=== PATIENT | male | born 1995 | race Caucasian/White ===

== ENCOUNTER 2018-06-22 11:21 | Emergency (ER) | payer OTHER ==
[~2018-06-22] VITALS: Ht 193 cm; Wt 81.7 kg
[~2018-06-22 11:21] MED LIST: (None)20 M1 PO; ALBU4 PO; ARIP10; ARIP10 PO; CEPH500 PO; HYDACE5 PO; HYDR1TAB94 PO; IBUP600 PO; NAPR500 PO; Percocet 5-3251 EACH PO; SERT25; SERT25 PO; SERT50; SULTRIDS PO; TRAZ50 PO; Vistaril25 MG PO
[2018-06-22] MEDS ORDERED: QUET200 PO ×3 (11:31→11:34)
[2018-06-22] MEDS ORDERED: OLAN10 PO (11:33)
== END 2018-06-22 11:37 | disposition home or self-care (01) ==
LOC: ER 11:21
DX: Z76.0 Encounter for issue of repeat prescription (principal); Z79.899 Other long term (current) drug therapy; F31.9 Bipolar disorder, unspecified; F17.200 Nicotine dependence, unspecified, uncomplicated
CPT/HCPCS: 99281

== ENCOUNTER 2018-12-01 21:11 | Emergency (ER) | payer OTHER ==
[~2018-12-01] VITALS: Ht 185.4 cm; Wt 86.2 kg
[~2018-12-01 21:11] MED LIST changes: +OLAN10 PO; +QUET200 PO
[2018-12-01] MEDS ORDERED: IBUP600 PO (23:23)
== END 2018-12-01 23:38 | disposition home or self-care (01) ==
LOC: ER 21:11
DX: S09.90XA Unspecified injury of head, initial encounter (principal); W22.8XXA Striking against or struck by other objects, initial encounter; Z79.899 Other long term (current) drug therapy; F31.9 Bipolar disorder, unspecified; F17.210 Nicotine dependence, cigarettes, uncomplicated
CPT/HCPCS: 70450; 99283-25

== ENCOUNTER 2018-12-10 14:45 | Emergency (ER) | payer OTHER ==
[~2018-12-10] VITALS: Ht 193 cm; Wt 86.2 kg
== END 2018-12-10 15:37 | disposition home or self-care (01) ==
LOC: ER 14:45
DX: S62.366A Nondisplaced fracture of neck of fifth metacarpal bone, right hand, initial encounter for closed fracture (principal); F31.9 Bipolar disorder, unspecified; F17.210 Nicotine dependence, cigarettes, uncomplicated; W22.8XXA Striking against or struck by other objects, initial encounter
CPT/HCPCS: 29125; 73130; 99283-25

== ENCOUNTER 2019-01-04 17:22 | Emergency (ER) | payer OTHER ==
[~2019-01-04] VITALS: Ht 193 cm; Wt 86.2 kg
[2019-01-04] MEDS ORDERED: Naprosyn500 MG PO (18:45)
== END 2019-01-04 18:52 | disposition home or self-care (01) ==
LOC: ER 17:22
DX: M25.562 Pain in left knee (principal); M25.462 Effusion, left knee; F31.9 Bipolar disorder, unspecified; F17.210 Nicotine dependence, cigarettes, uncomplicated
CPT/HCPCS: 73562-LT; 99283-25

== ENCOUNTER 2019-02-23 22:04 | Emergency (ER) | payer OTHER ==
[~2019-02-23] VITALS: Ht 193 cm; Wt 86.2 kg
[~2019-02-23 22:04] MED LIST changes: +Naprosyn500 MG PO
[2019-02-23] MEDS ORDERED: CEPH500 PO (23:44)
[2019-02-23] MEDS ORDERED: Bactrim Ds Tab1 EACH PO (23:44)
== END 2019-02-23 23:55 | disposition home or self-care (01) ==
LOC: ER 22:04
DX: L03.116 Cellulitis of left lower limb (principal); F17.210 Nicotine dependence, cigarettes, uncomplicated
CPT/HCPCS: 99282

== ENCOUNTER 2019-04-14 08:24 | Emergency (ER) | payer OTHER ==
[~2019-04-14] VITALS: Ht 193 cm; Wt 90.7 kg
[~2019-04-14 08:24] MED LIST changes: +Bactrim Ds Tab1 EACH PO
== END 2019-04-14 09:46 | disposition home or self-care (01) ==
LOC: ER 08:24
DX: S62.613A Displaced fracture of proximal phalanx of left middle finger, initial encounter for closed fracture (principal); F31.9 Bipolar disorder, unspecified; F17.210 Nicotine dependence, cigarettes, uncomplicated; X58.XXXA Exposure to other specified factors, initial encounter
CPT/HCPCS: 73130; 99283-25

== ENCOUNTER 2020-09-02 01:36 | Inpatient (IN) | payer OTHER ==
[~2020-09-02] VITALS: Ht 193 cm; Wt 103.5 kg
[~2020-09-02 01:36] MED LIST changes: +Mirtazapine7.5 MG PO; +RISPERIDONE PO
[2020-09-02 03:53] LABS: BASOPHILS ABSOLUTE AUTO 0.09 K/mm3 (0.00-0.23); BASOPHILS PERCENT AUTO 1 % (0-2); EOSINOPHILS ABSOLUTE AUTO 0.14 K/mm3 (0.00-0.68); EOSINOPHILS PERCENT AUTO 1 % (0-6); Hematocrit 45.4 % (37.0-53.0); IMMATURE GRAN ABSOLUTE AUTO 0.15 K/mm3 (0.00-0.10); IMMATURE GRAN PERCENT AUTO 1 % (0-1); LYMPHOCYTES ABSOLUTE AUTO 1.27 K/mm3 (0.84-5.20); LYMPHOCYTES PERCENT AUTO 6 % (21-46); MONOCYTES ABSOLUTE AUTO 1.72 K/mm3 (0.16-1.47); MONOCYTES PERCENT AUTO 9 % (4-13); Mean Corpuscular HGB 30.4 pg (26.0-34.0); Mean Corpuscular Volume 92 fL (80-100); Mean Platelet Volume 10.2 fL (9.1-12.4); NEUTROPHILS ABSOLUTE AUTO 16.57 K/mm3 (1.96-9.15); NEUTROPHILS PERCENT AUTO 83 % (41-73); Platelet Count 252 K/mm3 (150-400); RDW Standard Deviation 43.7 fL (35.1-46.3); Red Blood Cell Count 4.94 M/mm3 (4.30-5.90); White Blood Cell Count 19.94 K/mm3 (4.00-11.30)
[2020-09-02 04:11] LABS: Alanine Aminotransfer (ALT/SGP 34 U/L (12-78); Albumin, Blood 4.1 g/dL (3.4-5.0); Albumin/Globulin Ratio 0.9 (0.8-1.8); Alk Phos 79 U/L (50-136); Anion Gap 13 mmol/L (6-16); Aspartate Aminotrans (AST/SGOT 41 U/L (12-37); Blood Urea Nitrogen 21 mg/dL (8-24); CO2, Blood 22 mmol/L (21-32); Calcium, Blood 9.9 mg/dL (8.5-10.1); Chloride, Blood 102 mmol/L (98-108); Creatinine, Blood 0.88 mg/dL (0.60-1.20); Globulin, Blood 4.7 g/dL (2.2-4.0); Glomerular Filtration Rate >60 (60-); Glucose, Blood 73 mg/dL (70-99); Potassium, Blood 3.5 mmol/L (3.5-5.5); Sodium, Blood 137 mmol/L (136-145); Total Protein, Blood 8.8 g/dL (6.4-8.2)
--- NOTE | 2020-09-02 07:33 | NUR ---
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 arrived to unit via at 0545. medicated for left arm pain. l index finger swollen and red, l arm is edematous and red as well. sinus tach at 118 bpm per telecommunications support. pt is resting in bed now. dr. jansen made aware to contact radiologist about ct scan of the index finger as lab personnel wanted me to pass along this message. report given to oncoming rn.
--- NOTE | 2020-09-02 11:57 | NUR ---
09/02/20 1157 Twyla Zaldivar PT ON SCHEDULED ABX.
--- NOTE | 2020-09-02 12:48 | NUR ---
SECURITY CALLED AT 1235 DUE TO PT THRASHING AND PULLING ON CORDS. SECURITY REMAINS AT BEDSIDE FOR STANDBY ASSIST/SAFETY
--- NOTE | 2020-09-02 13:30 | NUR ---
PT RETURNED FROM SURGERY- TELEPHONE REPORT RECIEVED FROM DAY SURGERY RN. PT ALERT WHEN HE ARRIVED HERE ON MEDICAL FLOOR. PER REPORT PT WOKE FROM ANESTESIA VERY ROUGHLY AND SECURITY HAD TO BE CALLED TO KEEP THE PT AND STAFF SAFE. PT AT THIS TIME IS CALM, A LITTLE JITTERY AND SHAKEY. PT APPEARS TO BE NERVOUS BUT WAS ABLE TO UNDERSTAND STAFF EXPLANATIONS. PT HAS A Hx OF PARANOID SCHITZOPHRENIA AND BIPOLAR. PRIOR TO GOING TO SURGERY PT HAD CALLED HIS SISTER TO HAVE HER PICK HIM UP WHEN HE LEAVES. SISTER SPOKE TO HIM AND PT STATES SHE "CONVINCED ME TO STAY AND GET TREATED." PT CALMED MORE AFTER TALKING WITH RN. LEFT HAND IS WRAPPED AND BANDAGE IS ALREADY BLOODY, PER REPORT PT PULLED DRESSING PART WAY OFF PRIOR TO CALMING IN RECOVERY ROOM. WILL CTM.
--- NOTE | 2020-09-02 17:44 | NUR ---
SHIFT SUMMARY- PT SEEMS TO BE FEELING BETTER THIS EVENING AFTER THE PROCEDURE. PT STATED HE IS HUNGRY RIGHT AFTER THE PROCEDURE PROVIDED PUDDING AND JUICE AND THE PT DECIDED HE JUST WANTED FLUIDS, TONIGHT AT DINNER HOWEVER HE DECIDED HE WANTED TO EAT REGULAR FOOD; ADVANCE DIET TOLLERATED ORDER IN, PT SEEMS TO BE TOLLERATING WELL AT THIS TIME. WILL CTM AND PASS ON IN REPORT TO NIGHT RN.
--- NOTE | 2020-09-02 20:13 | NUR ---
PT A/O X4. SLIGHT ELEVATED ORAL TEMP OF 99.3. ROOM TEMP TURNED DOWN, COOL BEVERAGE BY BEDSIDE.
--- NOTE | 2020-09-02 23:44 | NUR ---
2250 PT GOT OUT OF BED TO USE THE BATHROOM AND FORGOT TO BRING IV POLE WITH HIM. IV WAS PULLED OUT. PT HAS ALSO PULLED OFF TELE. PT APPEARS DROWSY AND WAS SITTING IN THE CHAIR WHEN I WENT INTO PT'S ROOM. PT'S LEGS AND ARMS APPEARS RESTLESS WITH LOTS OF MOVEMENTS. HE IS ABLE TO CONVERSE FINE. VSS. PT WAS CLEANED UP AND ASSISTED TO BED WHICH HE FELL ASLEEP FAST. BED ALARM PLACED, BED IN LOWEST POSITION. PT TAUGHT TO USE THE CALL LIGHT BEFORE GETTING UP HE WAS INDEPENDENT AND MORE ALERT BEFORE. NEW IV PLACED IN L FOREARM.
[2020-09-03 05:26] LABS: BASOPHILS ABSOLUTE AUTO 0.03 K/mm3 (0.00-0.23); BASOPHILS PERCENT AUTO 0 % (0-2); EOSINOPHILS ABSOLUTE AUTO 0.01 K/mm3 (0.00-0.68); EOSINOPHILS PERCENT AUTO 0 % (0-6); Hematocrit 39.1 % (37.0-53.0); Hemoglobin 13.2 g/dL (13.5-17.5); IMMATURE GRAN ABSOLUTE AUTO 0.08 K/mm3 (0.00-0.10); IMMATURE GRAN PERCENT AUTO 1 % (0-1); LYMPHOCYTES ABSOLUTE AUTO 0.83 K/mm3 (0.84-5.20); LYMPHOCYTES PERCENT AUTO 5 % (21-46); MONOCYTES ABSOLUTE AUTO 1.07 K/mm3 (0.16-1.47); MONOCYTES PERCENT AUTO 7 % (4-13); Mean Corpuscular HGB 31.1 pg (26.0-34.0); Mean Corpuscular HGB Conc 33.8 g/dL (31.5-36.5); Mean Corpuscular Volume 92 fL (80-100); Mean Platelet Volume 10.5 fL (9.1-12.4); NEUTROPHILS ABSOLUTE AUTO 13.74 K/mm3 (1.96-9.15); NEUTROPHILS PERCENT AUTO 87 % (41-73); Platelet Count 181 K/mm3 (150-400); RDW Standard Deviation 44.1 fL (35.1-46.3); Red Blood Cell Count 4.24 M/mm3 (4.30-5.90); White Blood Cell Count 15.76 K/mm3 (4.00-11.30)
[2020-09-03 05:53] LABS: Anion Gap 9 mmol/L (6-16); Blood Urea Nitrogen 11 mg/dL (8-24); Bun/Creatinine Ratio 16.3 (12.0-20.0); CO2, Blood 22 mmol/L (21-32); Calcium, Blood 8.3 mg/dL (8.5-10.1); Chloride, Blood 105 mmol/L (98-108); Creatinine, Blood 0.68 mg/dL (0.60-1.20); Glomerular Filtration Rate >60 (60-); Glucose, Blood 108 mg/dL (70-99); Sodium, Blood 136 mmol/L (136-145)
--- NOTE | 2020-09-03 07:53 | NUR ---
PT WAS A/O X4 TOWARDS BEGINNING OF SHIFT BUT HAS BEEN MOSTLY SOMNOLENT THROUGHOUT THE NIGHT. AROUSIBLE TO VOICE AND FALLS BACK TO SLEEP RIGHT AWAY. Q4 POST OP VITALS OVERNIGHT AND ARE STABLE. PT HAS BEEN SR RANGING FROM 70'S-90'S WITH SINUS TACH WHEN AMBULATING TO BATHROOM. ROOM AIR MAINTAINING SATS AT 92% AND ABOVE. NO SOB NOTED. PT DOES HAVE SOME EXAGERRATED LEG MOVEMENTS AND SHAKING OF HEAD MOVEMENTS WITH LIGHT TOUCH WHEN WAKING PT UP, HE SAYS HE DOES NOT KNOW WHY HE DOES THIS WHEN HE SLEEPS. HE DOES HAVE SLIGHT CONSTANT TREMORS/JERKY MOVEMENT WHEN HE IS AWAKE. HE DENIES FEELING ANXIOUS. BED ALARM ON, CALL LIGHT WITHIN REACH. REPORT GIVEN TO AM NURSE.
--- NOTE | 2020-09-03 15:09 | NUR ---
Patient is sitting up in bed and alert. Patient immediately opens up about his life full of poor choices and harsh consequences and then compounded by health consequences as well. Patient talks about his return to his [employer] roots just prior to his infection as if God maybe trying to encourage a life change. Patient explains about his loving and kind family and the damage he has done and yet their forgiving natures. Patient discusses the hard choices needed to move out of where he is into a healthier life. I reinforce helpful attitudes and practices, hear confession and provide therapeutic listening, spiritual guidance and prayer. Patient responds well and and shows signs of catarsis and improved hope. I will continue to remain available to patient and family.
--- NOTE | 2020-09-03 18:15 | NUR ---
SUMMARY PT IS A/O X4, PLEASANT/COOPERATIVE AFFECT. DX L ARM CELLULITIS, GAMAL IS RED, HE HAD L INDEX FINGER I&D YESTERDAY BY DR FUNES. DRSG IN PLACE TO L HAND/WRIST, CDI, HE WIGGLES FINGERS. STATE NO PAIN. IV ANTIBX CONTINUE. DR DAY ORDER ECHO TO R/O PERICARDITIS. PT IS HONEST R/T HX IV DRUG ABUSE, HAVE ENCOURAGED CHANGE OF LIFESTYLE, HE IS RECEPTIVE. VSS/AFEBRILE. WBC 15.76.
[2020-09-04 04:43] LABS: BASOPHILS ABSOLUTE AUTO 0.03 K/mm3 (0.00-0.23); BASOPHILS PERCENT AUTO 0 % (0-2); EOSINOPHILS ABSOLUTE AUTO 0.13 K/mm3 (0.00-0.68); EOSINOPHILS PERCENT AUTO 1 % (0-6); Hematocrit 37.5 % (37.0-53.0); Hemoglobin 12.5 g/dL (13.5-17.5); IMMATURE GRAN ABSOLUTE AUTO 0.05 K/mm3 (0.00-0.10); IMMATURE GRAN PERCENT AUTO 1 % (0-1); LYMPHOCYTES PERCENT AUTO 18 % (21-46); MONOCYTES ABSOLUTE AUTO 0.94 K/mm3 (0.16-1.47); MONOCYTES PERCENT AUTO 9 % (4-13); Mean Corpuscular HGB 30.8 pg (26.0-34.0); Mean Corpuscular HGB Conc 33.3 g/dL (31.5-36.5); Mean Corpuscular Volume 92 fL (80-100); Mean Platelet Volume 10.8 fL (9.1-12.4); NEUTROPHILS ABSOLUTE AUTO 7.25 K/mm3 (1.96-9.15); NEUTROPHILS PERCENT AUTO 71 % (41-73); Platelet Count 192 K/mm3 (150-400); RDW Coefficient Variation 13.1 % (11.7-14.2); RDW Standard Deviation 45.1 fL (35.1-46.3); Red Blood Cell Count 4.06 M/mm3 (4.30-5.90)
--- NOTE | 2020-09-04 05:13 | NUR ---
SHIFT SUMMARY NO ACUTE CHANGES THIS SHIFT. AOX4. VSS. TELE NSR @83. I&D TO L INDEX FINGER 09/02/20, BANDAGE IS C/D/I. PT REPORTS PAIN /10, BUT STATES THAT IS TOLERABLE & DENIES PAIN MEDICATION. PT ABLE TO WIGGLE L FINGERS, CAP REFILL < 4, REPORTS SWELLING& REDNESS IN GAMAL HAS DECREASED. RECEIVING IV ANTIBIOTICS. CALL LIGHT IN REACH.
[2020-09-04] MEDS ORDERED: ACET325 PO (11:30)
[2020-09-04] MEDS ORDERED: VISBIOME PROBIOTIC PO (11:31)
[2020-09-04] MEDS ORDERED: AMOCLA875 PO (11:31)
[2020-09-04] MEDS ORDERED: IBUP600 PO (11:32)
--- NOTE | 2020-09-04 17:30 | NUR ---
SUMMARY DR DAY ROUND ON PT THIS AM, STATE OK FOR D/C HOME IF CLEARED BY DR FUNES (ORTHO). SHE SPOKE w DR FUNES'S ORTHOPEDIC SPECIALIST & PLACED ORDERS FOR D/C. HOWEVER PT SHOWED HER AREA OF R ARM THAT WAS STARTING TO SWELL & SHELLI, DR ORDER US WHICH REVEALED ABCESS. SHE PUT D/C ON HOLD & NOTIFIED DR FUNES OF NEED TO ASSESS HOWEVER HE WAS UNABLE TO COME IN TODAY SO NOTIFIED DR Dwight LIMA HOW AGREE TO SEE PT EITHER TODAY OR TOMORROW. PT VERBALIZE UNDERSTANDING. HIS IV FAILED THIS AFTERNOON, DR DAY CHANGE ANTIBX/MEDS TO ORAL, OK NO IV. LEADLIGHTER CHANGE L INDEX FINGER DRSG EARLIER IN PREP FOR D/C, GAVE PT HOME INSTRUCT FOR DRSG CHANGES. VSS.
--- NOTE | 2020-09-05 04:35 | NUR ---
SHIFT SUMMARY AOX4. VSS. DENIES N/V OR DYSPNEA. HAD I&D OF RAC YESTERDAY 09/04/[address] LIMA, DRESSING STILL C/D/I DURING ASSESSMENT. PT HAD I&D ON L INDEX FINGER/HAND ON 09/02/20, DRESSING WAS CHANGED DURING DAY SHIFT ON 09/04/20 & WAS STILL C/D/I. PT REPORTS 7/10 PAIN IN RAC, MEDICATED 1X c TYLENOL & PT WAS SOUND ASLEEP WHEN I WENT TO REASSESS. PT HOPING TO DC HOME TODAY. SLEPT SOUNDLY T/O NIGHT. CALL LIGHT IN REACH.
--- NOTE | 2020-09-05 12:29 | NUR ---
PT DISCHARGED FROM THE UNIT. MEDICATIONS FAXED TO PHARMACY. NO IV. DISCHARGE INSTRUCTIONS REVIEWED. NOTIFIED OF FOLLOW UP [facility]. [facility] ARM THIS MORNING.
== END 2020-09-05 12:17 | disposition home or self-care (01) | DRG 854 ==
LOC: ER 01:36 → MEDS 05:44
PROVIDERS: Emergency Medicine; Internal Medicine; Orthopaedic Surgery; ADMIT Family Medicine
PROC: 0X970ZZ Drainage of Left Upper Extremity, Open Approach (ICD-10-PCS; principal; 2020-09-02 09:15)
PROC: 0L980ZZ Drainage of Left Hand Tendon, Open Approach (ICD-10-PCS; 2020-09-04)
DX: A40.0 Sepsis due to streptococcus, group A (principal); L02.413 Cutaneous abscess of right upper limb; I82.890 Acute embolism and thrombosis of other specified veins; M65.141 Other infective (teno)synovitis, right hand; F31.9 Bipolar disorder, unspecified; L03.012 Cellulitis of left finger; F17.210 Nicotine dependence, cigarettes, uncomplicated; F11.10 Opioid abuse, uncomplicated; F15.10 Other stimulant abuse, uncomplicated
CPT/HCPCS: 36415; 76882; 80048; 80053; 83605; 85025; 85651; 86140; 87040; 87070; 87075; 87077; 87147; 87186; 87205; 93306; 93971; 97110; 97165; 99284; A9270; J0690; J1100; J1650; J1885; J2405; J2543; J2704; J3010; J3370; J7050; J7120; U0003

== ENCOUNTER 2021-01-30 19:23 | Emergency (ER) | payer OTHER ==
[~2021-01-30] VITALS: Ht 195.6 cm; Wt 113.4 kg
[~2021-01-30 19:23] MED LIST changes: +ACET325 PO; +AMOCLA875 PO; +VISBIOME PROBIOTIC PO
[2021-01-30] MEDS ORDERED: IBUP400 PO (21:51)
== END 2021-01-30 22:03 | disposition home or self-care (01) ==
LOC: ER 19:23
DX: M70.22 Olecranon bursitis, left elbow (principal); S39.012A Strain of muscle, fascia and tendon of lower back, initial encounter; F19.90 Other psychoactive substance use, unspecified, uncomplicated; F17.210 Nicotine dependence, cigarettes, uncomplicated; X58.XXXA Exposure to other specified factors, initial encounter
CPT/HCPCS: 72100; 87070; 87075; 87077; 87147; 87186; 87205; 99283-25

== ENCOUNTER 2021-07-21 23:16 | Emergency (ER) | payer OTHER ==
[~2021-07-21] VITALS: Ht 185.4 cm; Wt 85.3 kg
[~2021-07-21 23:16] MED LIST changes: +IBUP400 PO
== END 2021-07-21 23:29 | disposition home or self-care (01) ==
LOC: ER 23:16
DX: R23.8 Other skin changes (principal); F17.210 Nicotine dependence, cigarettes, uncomplicated
CPT/HCPCS: 99282

== ENCOUNTER 2021-09-16 19:55 | Emergency (ER) | payer OTHER ==
[~2021-09-16] VITALS: Ht 195.6 cm; Wt 86.2 kg
[2021-09-17] MEDS ORDERED: CLIN300 PO (09:25)
== END 2021-09-16 21:11 | disposition left against medical advice (07) ==
LOC: ER 19:55
DX: G43.909 Migraine, unspecified, not intractable, without status migrainosus (principal); F17.210 Nicotine dependence, cigarettes, uncomplicated
CPT/HCPCS: 70450; 96374; 96375; 99284-25; J1200; J1885; J2765

== ENCOUNTER 2021-09-17 08:57 | Emergency (ER) | payer OTHER ==
[~2021-09-17] VITALS: Ht 193 cm; Wt 88.5 kg
[2021-09-17] MEDS ORDERED: CLIN300 PO (09:25)
== END 2021-09-17 09:49 | disposition home or self-care (01) ==
LOC: ER 08:57
DX: K03.81 Cracked tooth (principal); F15.10 Other stimulant abuse, uncomplicated; F17.210 Nicotine dependence, cigarettes, uncomplicated
CPT/HCPCS: 99282; A9270

== ENCOUNTER 2021-09-19 00:32 | Emergency (ER) | payer OTHER ==
[~2021-09-19 00:32] MED LIST changes: +CLIN300 PO
== END 2021-09-19 02:50 | disposition left against medical advice (07) ==
LOC: ER 00:32
DX: Z53.21 Procedure and treatment not carried out due to patient leaving prior to being seen by health care provider (principal)

== ENCOUNTER 2024-03-26 20:14 | Emergency (ER) | payer OTHER ==
[~2024-03-26] VITALS: Ht 190.5 cm; Wt 99.8 kg
[2024-03-26 20:20] VITALS: BP 134/92
[2024-03-26] MEDS ORDERED: DIPH50 PO (20:24)
[2024-03-26] MEDS ORDERED: CEPH500 PO (20:25)
[2024-03-26] MEDS ORDERED: Cephalexin Monohydrate 250 MG/5 ML UD BTL PO ONE (20:30)
== END 2024-03-26 20:52 | disposition home or self-care (01) ==
LOC: ER 20:14
DX: K13.0 Diseases of lips (principal); L08.9 Local infection of the skin and subcutaneous tissue, unspecified; F17.210 Nicotine dependence, cigarettes, uncomplicated; Z79.2 Long term (current) use of antibiotics
CPT/HCPCS: A9270

== ENCOUNTER 2024-08-07 17:15 | Emergency (ER) | payer OTHER ==
[~2024-08-07] VITALS: Ht 193 cm; Wt 96.6 kg
[~2024-08-07 17:15] MED LIST changes: +DIPH50 PO
[2024-08-07 17:42] VITALS: BP 128/81
[2024-08-07] MEDS ORDERED: Cymbalta20 MG PO (17:44)
[2024-08-07] MEDS ORDERED: BUPRENORPHINE HC8 MG SL (17:44)
[2024-08-07] MEDS ORDERED: INVEGA PO (17:44)
[2024-08-07] MEDS ORDERED: CEPH500 PO (18:40)
== END 2024-08-07 18:44 | disposition home or self-care (01) ==
LOC: ER 17:15
DX: L03.114 Cellulitis of left upper limb (principal); L02.414 Cutaneous abscess of left upper limb; F17.210 Nicotine dependence, cigarettes, uncomplicated; Z79.899 Other long term (current) drug therapy
CPT/HCPCS: 10060; 99283-25

== ENCOUNTER 2024-08-10 13:44 | Emergency (ER) | payer OTHER ==
[~2024-08-10] VITALS: Ht 193 cm; Wt 96.6 kg
[~2024-08-10 13:44] MED LIST changes: +BUPRENORPHINE HC8 MG SL; +Cymbalta20 MG PO; +INVEGA PO
[2024-08-10 14:13] VITALS: BP 119/70
[2024-08-10] MEDS ORDERED: SULTRIDS PO (15:57)
== END 2024-08-10 16:00 | disposition home or self-care (01) ==
LOC: ER 13:44
DX: L03.113 Cellulitis of right upper limb (principal); L03.114 Cellulitis of left upper limb; F17.210 Nicotine dependence, cigarettes, uncomplicated
CPT/HCPCS: 99282